=== PATIENT | male | born 1985 | race Caucasian/White ===

== ENCOUNTER → 2018-10-03 | Day surgery (SDC) | payer OTHER ==
[~2018-10-03] VITALS: Ht 175.3 cm; Wt 88.5 kg
[~2018-10-03] MED LIST: BUPIVAC MPF-EPI 0.5%-1:200000 30 ML VIAL. ONE; CETI10TA22 PO; DESFLURANE 31 TO 60 MINUTES IH ONE; DEXAMETHASONE SOD PHOS 20 MG/5 ML VIAL. ONE; GLYCOPYRROLATE 1 MG/5 ML VIAL. ONE; HYDROmorphone 2 MG/ML VIAL IV PRN; IV RINGERS,LACTATED 1000ML 1,000 ML IV SCH; LIDOCAINE 1% PF 2 ML VIAL. ID PRN; LIDOCAINE 2% PF Vial for OR 5 ML VIAL. ONE; MORPHINE SULFATE 4 MG/ML VIAL. IV PRN; NAPR220C4 PO; NEOSTIGMINE 10 MG/10 ML VIAL. ONE; OMEP20TA63 PO; ONDANSETRON PF 4 MG/2 ML VIAL. IV PRN; ONDANSETRON PF 4 MG/2 ML VIAL. ONE; OXYC1TAB15 PO; PROCHLORPERAZINE 10 MG/2 ML VIAL. IV PRN; PROPOFOL 20 ML IV ONE; ROCURONIUM 50 MG/5 ML VIAL. ONE; fentaNYL PF VIAL 100 MCG/2 ML VIAL IV PRN; fentaNYL PF VIAL 100 MCG/2 ML VIAL ONE; oxyCODONE/APAP 5/325 1 TAB TABLET PO ONE
--- NOTE | 2018-10-03 11:15 | PDOC4 ---
Operative Note Operative Note Date: 10/03/2018 Preoperative diagnosis: Pilonidal cyst Postoperative diagnosis: Same Procedure: Pilonidal cystectomy Surgeon: Sven Specimen: Pilonidal cyst Dictation: Patient is 33-year-old male who's complained of a bump on his buttocks that's gotten bigger and smaller over time occasionally has drainage from the area and pain. Procedure of pilonidal cystectomy was explained to the patient in detail risk benefits were also discussed including bleeding infection alternatives to this procedure also discussed with the patient who seemed to understand and gave both verbal and written consent to have the procedure performed. Patient was taken to the operating room placed in supine position general anesthesia was initiated was patient was sleeping intubated his repositioned in prone positioning his buttocks was prepped and draped usual sterile fashion using ChloraPrep. An area around the pilonidal cyst in the cleft of the buttocks was injected with quarter percent Marcaine with epinephrine elliptical incision of the skin was made with 15 blade scalpel was carried down through the subcutaneous tissues using electrocautery down to the external fascia over the coccyx and was removed with electrocautery. The wound was then undermined with electrocautery and the deep edges were brought together with 0 Vicryl in a running suture deep subcutaneous layer was closed with a running 3-0 Vicryl and the skin was reapproximated with 3-0 nylon in a horizontal mattress suture. Wound was dressed with 4 x 4's and ABDs. Patient was repositioned in the supine position awakened and extubated in the operating room taken to recovery in stable condition all sponge instrument needle counts listed as correct estimated blood loss 5 mL. FIDELINA BELCHER MD Oct 03, 2018 11:15
--- NOTE | 2018-10-03 11:16 | DISCH ---
DISCHARGE INSTRUCTIONS Condition on Discharge Condition on Discharge: Stable Activity After Discharge Activity Instructions for Disc: Avoid exertion Other activity instructions: no sitting directly on the wound for 2 weeks Diet after Discharge Diet after Discharge: Regular Wound Incision Care Other wound/incision instructi: patient may shower in 24 hours Contacting the DRJeremiah after DC Call your doctor for: If your condition worsens Follow-Up Follow up with: Dr. Belcher in 2 weeks FIDELINA BELCHER MD Oct 03, 2018 11:16
[2018-10-03 11:51] VITALS: BP 125/71
--- NOTE | 2018-10-06 16:09 | PATHOLOGY ---
[facility] Accession Number: [id number] . 01 Material submitted: . PILONIDAL CYST . 01 Clinical history: . Pilonidal cyst. . 02 Diagnosis: Skin and subcutaneous tissue, pilonidal cystectomy: - Pilonidal sinus showing acute inflammation with surrounding fibrosis and chronic inflammation. [facility]/10/06/2018 . 02 Comment: There is no evidence of malignancy. (JPM:[facility] 10/06/2018) . 02 Electronically signed: . Osvaldo Hutchins MD, Pathologist NPI- [id number] . 01 Gross description: . Received in formalin labeled "Salvatore, Luis Alberto, pilonidal cyst" is an 8.5 x 1.6 cm excision of dark brown skin which is excised to a maximum depth of 3.2 cm. Upon sectioning, a euceda-white fibrotic cystic structure is identified in the underlying soft tissue measuring 5.2 x 1.0 x 0.8 cm. A fundraising sale representative section is submitted in cassette A1. ([facility]; 10/05/2018) SYC/SYC . 02 Pathologist provided ICD-10: L05.91 . 02 CPT . 671485 Specimen Comment: A courtesy copy of this report has been sent to Specimen Comment: [phone], . Specimen Comment: Report sent to / DR OLIVEIRA Specimen Comment: A duplicate report has been generated due to demographic updates. Performed at: 01 [facility] [address], [place] [id number] MD Charly Jenkins MD Phone: [phone] Performed at: 02 [facility] [address] [place], [place] [id number] MD Osvaldo Hutchins MD Phone: [phone]
== END | disposition home or self-care (01) ==
LOC: SURG 08:45
PROVIDERS: ATTEND Surgery
DX: L05.91 Pilonidal cyst without abscess (principal); Z88.0 Allergy status to penicillin; Z88.6 Allergy status to analgesic agent; Z79.899 Other long term (current) drug therapy; M50.30 Other cervical disc degeneration, unspecified cervical region; M47.892 Other spondylosis, cervical region; Z82.49 Family history of ischemic heart disease and other diseases of the circulatory system; F17.210 Nicotine dependence, cigarettes, uncomplicated; Z72.89 Other problems related to lifestyle
CPT/HCPCS: 11771; 88304; A7015; J0696; J1100; J2001; J2405; J2704; J3010; J3490; J2710; A4461

== ENCOUNTER → 2021-12-27 | Outpatient (CLI) | payer OTHER ==
[2018-10-03 11:51] VITALS: BP 125/71
[~2021-12-27] MED LIST changes: -BUPIVAC MPF-EPI 0.5%-1:200000 30 ML VIAL. ONE; -CETI10TA22 PO; +CETI10TA74 PO; -DESFLURANE 31 TO 60 MINUTES IH ONE; -DEXAMETHASONE SOD PHOS 20 MG/5 ML VIAL. ONE; -GLYCOPYRROLATE 1 MG/5 ML VIAL. ONE; -HYDROmorphone 2 MG/ML VIAL IV PRN; -IV RINGERS,LACTATED 1000ML 1,000 ML IV SCH; -LIDOCAINE 1% PF 2 ML VIAL. ID PRN; -LIDOCAINE 2% PF Vial for OR 5 ML VIAL. ONE; -MORPHINE SULFATE 4 MG/ML VIAL. IV PRN; -NEOSTIGMINE 10 MG/10 ML VIAL. ONE; -ONDANSETRON PF 4 MG/2 ML VIAL. IV PRN; -ONDANSETRON PF 4 MG/2 ML VIAL. ONE; -PROCHLORPERAZINE 10 MG/2 ML VIAL. IV PRN; -PROPOFOL 20 ML IV ONE; -ROCURONIUM 50 MG/5 ML VIAL. ONE; -fentaNYL PF VIAL 100 MCG/2 ML VIAL IV PRN; -fentaNYL PF VIAL 100 MCG/2 ML VIAL ONE; -oxyCODONE/APAP 5/325 1 TAB TABLET PO ONE
--- NOTE | 2021-12-28 07:23 | KCIC ---
MR cervical spine without contrast dated 12/28/2021 7:15 AM: No comparison available. Indication: Pain. Radiculopathy. Technique: Routine multiplanar multisequence MR imaging of the cervical spine was performed without t he administration of intravenous contrast material. Findings: Straightening of the normal cervical lordosis. Sagittal alignment is otherwise anatomic. Vertebral lilia dy heights are maintained. No marrow edema. Cervical medullary junction within normal limits. No cere bellar tonsil ectopia. No focal signal abnormality within the cervical cord. At C2-C3, tiny shallow central protrusion. Central canal foramen are adequate. At C3-C4, tiny shallow central protrusion. Central canal and foramen are patent. At C4-C5, minimal broad-based bulge with shallow central protrusion. Central canal and foramen are ad equate. At C5-C6,small central disc protrusion and posterior annular tear. Protruding disc appears to abut an d minimally flatten the ventral cervical cord. Mild central stenosis. Mild bilateral foraminal narrow ing. At C6-C7, there is a small moderate sized left central disc protrusion. Protruding disc appears to ab ut and mildly flatten the ventral cervical cord. Mild central stenosis with abutment of the left-side d nerve roots. Mild left foraminal narrowing. The right foramen is patent. The C7-T1 disc level is within normal limits. Impression:: 1. There are small disc protrusions at C5-C6 and C6-C7 that result in mild central stenosis and abutm ent/flattening the ventral cervical cord. No significant cord edema. There is abutment of the left le ft-sided nerve roots at C6-C7 with mild left foraminal narrowing. 2. Minimal spondylotic changes at the remaining levels. Please see above report for full details. Electronically signed by: Cornell Sandoval MD (12/28/2021 7:20 AM) [facility]
== END ==
LOC: KCIC MRI 14:59
PROVIDERS: ATTEND Family Medicine
DX: M47.22 Other spondylosis with radiculopathy, cervical region (principal); M43.02 Spondylolysis, cervical region; M50.220 Other cervical disc displacement, mid-cervical region, unspecified level; M50.322 Other cervical disc degeneration at C5-C6 level
CPT/HCPCS: 72141